=== PATIENT | male | born 1995 | race African-American/Black ===

== ENCOUNTER 2023-08-08 05:38 | Emergency (ER) | payer MEDICAID ==
[~2023-08-08] VITALS: Ht 175.3 cm; Wt 100.0 kg
[2023-08-08] MEDS: PROCHLORPERAZINE EDISYLATE 5 MG/ML 2ML VIAL IV ONE (06:31)
[2023-08-08] MEDS: PANTOPRAZOLE 40 MG/10 ML VIAL INJ IV ONE (06:31)
[2023-08-08] MEDS: MORPHINE SULFATE 4 MG/ML SYR/VIAL IV ONE (06:32)
[2023-08-08 06:50] LABS: Urine Bacteria NONE SEEN /hpf (None Seen); Urine Blood Negative /uL (Negative); Urine Clarity Clear (Clear); Urine Color Yellow (Yellow); Urine Hyaline Cast MOD /lpf (0 - 2); Urine Mucus MANY (None Seen); Urine Protein, UAD 1+ (Negative); Urine Specific Gravity 1.026 (1.001-1.035); Urine WBC 7 /hpf (0 - 3)
[2023-08-08 06:53] LABS: Basophils # (auto) 0 10 ^3/uL (0-0.2); Basophils % (auto) 0.5 % (0.0-2.0); Eosinophils # (auto) 0 10 ^3/uL (0-0.8); Eosinophils % (auto) 0.3 % (0.0-7.0); Hematocrit 47.4 % (41.0-53.0); Hemoglobin 16.2 g/dL (13.5-17.5); Lymphocytes # (auto) 2.8 10 ^3/uL (0.4-5.4); Lymphocytes % (auto) 30.5 % (10.0-50.0); Mean Corpuscular Hemoglobin 31.1 pg (28.0-32.0); Mean Corpuscular Hgb Conc. 34.3 g/dL (32.0-36.0); Mean Corpuscular Volume 90.8 fL (80.0-100.0); Monocytes # (auto) 1.1 10 ^3/uL (0-1.3); Monocytes % (auto) 12.4 % (0.0-12.0); Neutrophils # (auto) 5.1 10 ^3/uL (1.6-8.6); Neutrophils % (auto) 56.3 % (37.0-80.0); Nucleated Red Blood Cells % 0.2 %; Red Blood Cells 5.22 10^6/uL (4.5-5.90); Red Cell Distribution Width 13.2 % (11.8-14.3); White Blood Cell 9.1 10^3/uL (4.4-10.8)
[2023-08-08 06:54] LABS: Chloride 100 mmol/L (98-107); Potassium 3.3 mmol/L (3.5-5.1); Sodium 135 mmol/L (136-145)
[2023-08-08 06:55] LABS: Anion Gap 8 (5-15); Calcium 10.4 mg/dL (8.5-10.1); Carbon Dioxide 27 mmol/L (20-30)
[2023-08-08 07:00] LABS: BUN/Creatinine Ratio 4.7 (10.0-20.0); Blood Urea Nitrogen 7 mg/dL (9-23); Glucose 79 mg/dL (74-106)
[2023-08-08 07:05] LABS: Amphetamine Screen, Urine Neg (NEGATIVE); Barbiturate Scree,Urine Pos (NEGATIVE); Benzodiazephine Screen, Urine Neg (NEGATIVE); Cannabinoid Screen, Urine Pos (NEGATIVE); Cocaine Screen, Urine Neg (NEGATIVE); Opiate Scree,Urine Pos (NEGATIVE); Phencyclidine Screen, Urine Neg (NEGATIVE)
[2023-08-08 07:39] LABS: Lipase 24 U/L (12-53)
[2023-08-08] MEDS ORDERED: ZOFR4T PO (07:47)
[2023-08-08] MEDS ORDERED: PANT40TA2 PO (07:47)
[2023-08-08 08:00] VITALS: BP 123/78; PULSE 71; RESP 16; TEMP 98; O2SAT 100
== END 2023-08-08 08:18 | disposition home or self-care (01) ==
LOC: ER 05:38
DX: N20.0 Calculus of kidney (principal); F12.188 Cannabis abuse with other cannabis-induced disorder; Z79.899 Other long term (current) drug therapy
CPT/HCPCS: 36415; 74176; 80048; 80307; 81001; 83690; 85025; 96374; 96375; 99285; C9113; J0780; J2270